=== PATIENT | female | born 1960 | race Two or more races ===

== ENCOUNTER 2023-11-06 11:25 | Inpatient (IN) | payer MEDICAID, OTHER ==
[~2023-11-06] VITALS: Ht 157.5 cm; Wt 83.9 kg
[2023-11-06 12:04] LABS: Basophils # (auto) 0 10 ^3/uL (0-0.2); Basophils % (auto) 0.3 % (0.0-2.0); Eosinophils # (auto) 0.1 10 ^3/uL (0-0.8); Eosinophils % (auto) 0.8 % (0.0-7.0); Hemoglobin 17.1 g/dL (12.2-16.2); Lymphocytes # (auto) 1.6 10 ^3/uL (0.4-5.4); Lymphocytes % (auto) 13.6 % (10.0-50.0); Mean Corpuscular Hemoglobin 30.6 pg (28.0-32.0); Mean Corpuscular Hgb Conc. 34.2 g/dL (32.0-36.0); Mean Corpuscular Volume 89.5 fL (80.0-100.0); Monocytes # (auto) 0.5 10 ^3/uL (0-1.3); Monocytes % (auto) 3.7 % (0.0-12.0); Neutrophils # (auto) 9.8 10 ^3/uL (1.6-8.6); Neutrophils % (auto) 81.6 % (37.0-80.0); Nucleated Red Blood Cells % 0.1 %; Red Blood Cells 5.59 10^6/uL (4.0-5.20); Red Cell Distribution Width 14.2 % (11.8-14.3); White Blood Cell 12.1 10^3/uL (4.4-10.8)
[2023-11-06 12:20] LABS: Alanine Aminotransferase 32 U/L (7-40); Albumin 4.6 g/dL (3.2-4.8); Alkaline Phosphatase 103 U/L (46-116); Anion Gap 9 (5-15); Aspartate Aminotransferase 29 U/L (13-40); BUN/Creatinine Ratio 13.7 (10.0-20.0); Bilirubin, Total 0.7 mg/dL (0.2-1.0); Blood Urea Nitrogen 13 mg/dL (9-23); Calcium 10.1 mg/dL (8.5-10.1); Carbon Dioxide 24 mmol/L (20-30); Chloride 101 mmol/L (98-107); Glucose 298 mg/dL (74-106); Magnesium 1.5 mg/dL (1.6-2.6); Potassium 3.9 mmol/L (3.5-5.1); Sodium 134 mmol/L (136-145); Total Protein 7.6 g/dL (5.7-8.2)
[2023-11-06 12:33] LABS: Lactic Acid w/Reflex 3.4 mmol/L (0.4-2.0)
[2023-11-06] MEDS: LABETALOL HCL 5 MG/ML 4ML SYRINGE IV ONE (13:05)
[2023-11-06] MEDS: SODIUM CHLORIDE 0.9% 1,000 ML IV ONE (13:38)
[2023-11-06] MEDS ORDERED: ASPI81CH49 PO (13:54)
[2023-11-06] MEDS ORDERED: GLIP10TA9 PO (13:54)
[2023-11-06] MEDS ORDERED: BENA20TA13 PO (13:54)
[2023-11-06] MEDS ORDERED: SIMV20TA20 PO (13:54)
[2023-11-06] MEDS ORDERED: ONDANSETRON HCL 4 MG/2 ML VIAL IV PRN (14:00)
[2023-11-06] MEDS ORDERED: MORPHINE SULFATE INJ 2 MG/ml SYRG IV PRN (14:00)
[2023-11-06] MEDS ORDERED: HYDROcodone-ACET 5/325MG TAB PO PRN (14:00)
[2023-11-06] MEDS ORDERED: ACETAMINOPHEN 325 MG TAB PO PRN (14:00)
[2023-11-06] MEDS: MAGNESIUM SULFATE 1GM/100ML 100 ML IV ONE (14:00)
[2023-11-06] MEDS ORDERED: DEXTROSE (50%) 50ML SYRG IV PRN (14:00)
[2023-11-06] MEDS: SODIUM CHLORIDE 0.9% 1,000 ML IV SCH (14:14)
[2023-11-06 14:26] LABS: Urine Bacteria None Seen /hpf (None Seen)
[2023-11-06 14:27] LABS: Triglycerides 203 mg/dL (< 150)
[2023-11-06 14:28] LABS: LDL Cholesterol 81 mg/dL (< 100)
[2023-11-06 14:29] LABS: Cholesterol 156 mg/dL (< 200); HDL Cholesterol 52 mg/dL (40-59)
[2023-11-06 14:47] LABS: Urine Blood TRACE /uL (Negative); Urine Clarity Clear (Clear); Urine Color Light-Yellow (Yellow); Urine Protein, UAD Negative (Negative); Urine Specific Gravity 1.027 (1.001-1.035); Urine Urobilinogen Normal (Negative); Urine WBC 1 /hpf (0 - 5)
[2023-11-06] MEDS: ACETAMINOPHEN 325 MG TAB PO PRN (15:06)
[2023-11-06] MEDS: cefTRIAXone 1GM/50ML D5W 50 ML IV ONE (15:22)
[2023-11-06] MEDS ORDERED: VANCOMYCIN PER PHARMACY 0 MG IV SCH (15:30)
[2023-11-06] MEDS: VANCOMYCIN 1GM/200ML 200 ML IV ONE (15:58)
[2023-11-06 16:11] VITALS: PULSE 77; RESP 18; O2SAT 98
[2023-11-06] MEDS: ACCU-CHEK COMFORT CURVE STRIP VI SCH (18:40)
[2023-11-06] MEDS: InsuLIN REG 1unit/0.01ml Soln (100units/ml) SC SCH (18:41)
[2023-11-06] MEDS: glipiZIDE 5 MG TAB PO SCH (18:44)
[2023-11-06 19:30] VITALS: PULSE 100; RESP 16; O2SAT 97
[2023-11-06] MEDS ORDERED: ATORVASTATIN 20 MG TAB PO SCH (22:00)
[2023-11-06 22:20] VITALS: BP 144/80; PULSE 87; RESP 18; TEMP 98.5; O2SAT 95
[2023-11-06] MEDS: ATORVASTATIN 20 MG TAB PO SCH (23:53)
[2023-11-07] VITALS (9 sets, daily range): BP systolic 124–153; BP diastolic 68–96; PULSE 74–95; RESP 16–20; TEMP 98–98.5; O2SAT 94–97
[2023-11-07 06:13] LABS: Basophils # (auto) 0 10 ^3/uL (0-0.2); Basophils % (auto) 0.3 % (0.0-2.0); Eosinophils # (auto) 0.2 10 ^3/uL (0-0.8); Eosinophils % (auto) 2.2 % (0.0-7.0); Hematocrit 45.9 % (36.0-46.0); Hemoglobin 15.6 g/dL (12.2-16.2); Lymphocytes # (auto) 3.4 10 ^3/uL (0.4-5.4); Mean Corpuscular Hemoglobin 30.2 pg (28.0-32.0); Monocytes # (auto) 0.7 10 ^3/uL (0-1.3); Monocytes % (auto) 7.2 % (0.0-12.0); Neutrophils # (auto) 4.9 10 ^3/uL (1.6-8.6); Neutrophils % (auto) 53.3 % (37.0-80.0); Red Blood Cells 5.15 10^6/uL (4.0-5.20); Red Cell Distribution Width 14.4 % (11.8-14.3); White Blood Cell 9.2 10^3/uL (4.4-10.8)
[2023-11-07 06:39] LABS: Alanine Aminotransferase 26 U/L (7-40); Alkaline Phosphatase 78 U/L (46-116); Anion Gap 7 (5-15); Calcium 9.7 mg/dL (8.7-10.4); Carbon Dioxide 26 mmol/L (20-30); Chloride 106 mmol/L (98-107); Potassium 3.3 mmol/L (3.5-5.1); Sodium 139 mmol/L (136-145)
[2023-11-07 06:40] LABS: Albumin 3.9 g/dL (3.2-4.8); BUN/Creatinine Ratio 16.9 (10.0-20.0); Blood Urea Nitrogen 12 mg/dL (9-23); Glucose 114 mg/dL (74-106)
[2023-11-07 06:42] LABS: Bilirubin, Total 0.9 mg/dL (0.2-1.0); Total Protein 6.5 g/dL (5.7-8.2)
[2023-11-07 07:08] LABS: Aspartate Aminotransferase 19 U/L (13-40)
[2023-11-07] MEDS: cefTRIAXone 1GM/50ML D5W 50 ML IV SCH (09:15)
[2023-11-07] MEDS: VANCOMYCIN 1GM/200ML 200 ML IV SCH (11:52)
[2023-11-07] MEDS: ASPirin 81 mg TAB PO SCH (12:47)
[2023-11-07] MEDS: hydroCHLOROthiazide 25 MG TAB PO SCH (12:47)
[2023-11-07] MEDS: ENOXAPARIN SOD 40 MG/0.4 ML SYRINGE SC SCH (12:47)
[2023-11-07] MEDS: BENAZEPRIL HCL 10 MG TAB PO SCH (12:47)
[2023-11-07] MEDS: POTASSIUM CHL 20 Meq TABLET PO ONE (21:18)
[2023-11-08] VITALS (8 sets, daily range): BP systolic 109–146; BP diastolic 53–114; PULSE 68–101; RESP 16–20; TEMP 97.8–98.6; O2SAT 92–98
[2023-11-09] VITALS (7 sets, daily range): BP systolic 108–145; BP diastolic 56–90; PULSE 63–92; RESP 17–20; TEMP 97.6–98.5; O2SAT 95–98
[2023-11-10] VITALS (7 sets, daily range): BP systolic 112–174; BP diastolic 64–86; PULSE 67–95; RESP 18–19; TEMP 97.8–98.7; O2SAT 95–100
[2023-11-10 06:02] LABS: Basophils # (auto) 0 10 ^3/uL (0-0.2); Basophils % (auto) 0.2 % (0.0-2.0); Eosinophils # (auto) 0.2 10 ^3/uL (0-0.8); Eosinophils % (auto) 3.1 % (0.0-7.0); Hematocrit 45.2 % (36.0-46.0); Hemoglobin 15.6 g/dL (12.2-16.2); Lymphocytes # (auto) 2.9 10 ^3/uL (0.4-5.4); Mean Corpuscular Hemoglobin 30.7 pg (28.0-32.0); Mean Corpuscular Hgb Conc. 34.6 g/dL (32.0-36.0); Mean Corpuscular Volume 88.9 fL (80.0-100.0); Monocytes # (auto) 0.5 10 ^3/uL (0-1.3); Monocytes % (auto) 6.7 % (0.0-12.0); Neutrophils # (auto) 4.1 10 ^3/uL (1.6-8.6); Nucleated Red Blood Cells % 0.2 %; Red Blood Cells 5.09 10^6/uL (4.0-5.20); Red Cell Distribution Width 14.1 % (11.8-14.3); White Blood Cell 7.7 10^3/uL (4.4-10.8)
[2023-11-10] MEDS: hydrALAZINE HCL 20 MG/ML VL IV PRN (21:18)
[2023-11-11] VITALS (17 sets, daily range): BP systolic 109–163; BP diastolic 58–103; PULSE 64–121; RESP 12–20; TEMP 97.5–98.3; O2SAT 94–99
[2023-11-11 07:11] LABS: Partial Thromboplastin Time 25.6 SEC (24.5-34.5); Prothrombin Time 10.6 sec (9.3-11.8)
[2023-11-11] MEDS: LIDOCAINE VISCOUS 2% 15ML UD MT ONE (11:15)
[2023-11-11] MEDS: fentaNYL CITRATE 100 MCG/2 ML VL IV ONE (11:15)
[2023-11-11] MEDS: MIDAZOLAM HCL 2MG/2ML 2ml VIAL (1mg/ml) IV ONE (11:15)
[2023-11-11] MEDS: fentaNYL CITRATE 100 MCG/2 ML VL ONE (11:24)
[2023-11-11] MEDS: MIDAZOLAM HCL 2MG/2ML 2ml VIAL (1mg/ml) ONE (11:24)
[2023-11-11] MEDS: LIDOCAINE VISCOUS 2% 15ML UD ONE (11:24)
== END 2023-11-11 16:40 | disposition home or self-care (01) | DRG 720 ==
LOC: ER 11:29 → TELE 13:54 → TELE-EAST 22:25
PROVIDERS: ADMIT Registered Nurse; ATTEND Internal Medicine Geriatric Medicine
DX: A41.9 Sepsis, unspecified organism (principal); I63.9 Cerebral infarction, unspecified; E87.20 Acidosis, unspecified; E11.9 Type 2 diabetes mellitus without complications; E66.9 Obesity, unspecified; E78.5 Hyperlipidemia, unspecified; E83.42 Hypomagnesemia; E86.0 Dehydration; F32.A Depression, unspecified; F41.9 Anxiety disorder, unspecified; I10 Essential (primary) hypertension; F44.89 Other dissociative and conversion disorders; S00.03XA Contusion of scalp, initial encounter; I16.0 Hypertensive urgency; J45.909 Unspecified asthma, uncomplicated; N39.0 Urinary tract infection, site not specified; Z79.82 Long term (current) use of aspirin; Z79.84 Long term (current) use of oral hypoglycemic drugs; Z68.33 Body mass index [BMI] 33.0-33.9, adult; Z82.49 Family history of ischemic heart disease and other diseases of the circulatory system; Z79.899 Other long term (current) drug therapy; Z83.3 Family history of diabetes mellitus; W18.39XA Other fall on same level, initial encounter; Y93.89 Activity, other specified; Y92.098 Other place in other non-institutional residence as the place of occurrence of the external cause; Y99.8 Other external cause status
CPT/HCPCS: 36415; 70450; 70551; 71045; 71250; 72125; 80053; 80061; 80202; 81001; 82565; 82962; 83036; 83605; 83735; 84443; 84484; 85025; 85610; 85730; 86850; 86900; 86901; 87040; 87086; 93005; 93017; 93306; 93312; 93886; 96361; 96365; 96367; 96368; 96375; 99152; G0378; J1815; J2250; J3490